=== PATIENT | female | born 1930 | race Caucasian/White ===

== ENCOUNTER 2018-02-01 15:41 | Observation (INO) | payer OTHER ==
[2018-02-01] MEDS ORDERED: methylPREDNISolone NA SUCC 125 MG/2 ML VIAL IVPB ONE (15:43)
[2018-02-01] MEDS: ALBUTEROL SO4 2.5/IPRATROPIUM 0.5 INH SOL 3 ML VIAL.NEB. NEB SCH ×4 (15:51→17:14)
--- NOTE | 2018-02-01 15:55 | PDOC ---
History of Present Illness - General Chief Complaint: Respiratory Distress Stated Complaint: DIFFICULTY BREATHING Time Seen by Provider: 02/01/18 15:47 - History of Present Illness Initial Comments: 02/01/18 15:49 88 F with h/o HTN, COPD, ?HOCM presents to ED with SOB x 5 days. Pt states that she has very advanced COPD and feels like she is having a COPD flare. Pt endorses wheezing and chest pressure. Denies F/C. Denies leg swelling. She states that she has not been using her albuterol at home because she believes she was given the wrong dosage by her doctors at [facility]. Pt has been admitted to [facility] twice this year and had extensive work up. However, pt is dissatisfied with the care she was receiving there and comes here today. Pt uses 2L home O2. Has not been on steroids recently. No h/o intubations. Past History - Past Medical History Allergies/Adverse Reactions: Allergies Allergy/AdvReac Type Severity Reaction Status Date / Time Iodine and Iodide Containing AdvReac Intermediate Verified 02/01/18 15:42 Produc Home Medications: Ambulatory Orders Albuterol 0.083% Nebulizer Susan [Ventolin 0.083% Nebulizer Soln -] 1 inh IN PRN 02/01/18 Albuterol Sulfate [Proventil HFA Inhaler -] 1 puff IN PRN 02/01/18 Review of Systems - Review of Systems Comments:: 02/01/18 15:51 "GENERAL/CONSTITUTIONAL: No fever or chills. No weakness. HEAD, EYES, EARS, NOSE AND THROAT: No change in vision. No ear pain or discharge. No sore throat. CARDIOVASCULAR: No chest pain . RESPIRATORY: + cough and SOB GASTROINTESTINAL: No nausea, vomiting, diarrhea or constipation. GENITOURINARY: No dysuria, frequency, or change in urination. MUSCULOSKELETAL: No joint or muscle swelling or pain. No neck or back pain. SKIN: No rash NEUROLOGIC: No headache, vertigo, loss of consciousness, or change in strength/ sensation. ENDOCRINE: No increased thirst. No abnormal weight change. HEMATOLOGIC/LYMPHATIC: No anemia, easy bleeding, or history of blood clots. ALLERGIC/IMMUNOLOGIC: No hives or skin allergy. " *Physical Exam - Physical Exam Comments: 02/01/18 15:53 "GENERAL: Awake, alert, and fully oriented, in no acute distress. HEAD: No signs of trauma EYES: PERRLA, EOMI, sclera anicteric, conjunctiva clear ENT: Auricles normal inspection, hearing grossly normal, nares patent, oropharynx clear without exudates. Moist mucosa NECK: Nontender, no stepoffs, Normal ROM, supple, no lymphadenopathy, JVD, or masses LUNGS: + diffuse rhonchi and expiratory wheezes HEART: Regular rate and rhythm, normal S1 and S2, no murmurs, rubs or gallops ABDOMEN: Soft, nontender, normoactive bowel sounds. No guarding, no rebound. No masses EXTREMITIES: Normal range of motion, no edema. No clubbing or cyanosis. No cords, erythema, or tenderness NEUROLOGICAL: Cranial nerves II through XII intact. 5/5 strength and sensation in all extremities, Normal speech, normal gait, normal cerebellar function SKIN: Warm, Dry, normal turgor, no rashes or lesions noted. " ED Treatment Course - LABORATORY CBC & Chemistry Diagram: 02/01/18 16:05 02/01/18 16:05 - RADIOLOGY Radiology Studies Ordered: Category Date Time Status CHEST X-RAY PORTABLE* [RAD] Stat Radiology 02/01/18 15:43 Ordered Medical Decision Making - Medical Decision Making 02/01/18 15:55 88 F with likely COPD flare. Severe wheezing on exam. No lower extremity swelling or rales to suggest CHF. No evidence of DVT/PE on exam. WIll r/o PNA with CXR. Pt without chest pain to suggest ACS. - Labs - CXR - Nebs, steroids - Reassess 02/01/18 17:51 Labs wnl CXR clear Pt reassessed s/p nebs and steroids. Significantly improved lung exam, but pt still with moderate expiratory wheezes. Will continue albuterol nebs and admit. 02/01/18 18:33 Pt reassessed at 6pm - HR now 160s, EKG obtained, shows SVT Pt instructed to perform vagal maneuvers, with successful conversion to sinus rhythm, HR 90. Pt denies ever having chest pain. Pt with 2 more episodes of SVT, all of which break with vagal maneuvers. dilt 30mg PO administered. Pt now sustained in NSR. Pt admitted to hospitalist, inpt tele *DC/Admit/Observation/Transfer Diagnosis at time of Disposition: COPD (chronic obstructive pulmonary disease), SVT (supraventricular tachycardia ) - Discharge Dispostion Condition at time of disposition: Fair Decision to Admit order: Yes - Referrals - Patient Instructions - Post Discharge Activity - Attestations Physician Attestion: 02/01/18 18:36 I, Dr. Kamar Miller MD, attest that this document has been prepared under my direction and personally reviewed by me in its entirety. I further attest, that it accurately reflects all work, treatment, procedures and medical decision -making performed by me.
[2018-02-01 16:25] LABS: BASO % 1.4 % (0-2.0); EOS % 13.9 % (0-4.5); HEMATOCRIT 43.3 % (32.4-45.2); HEMOGLOBIN 14.7 GM/dl (10.7-15.3); LYMPH % 15.1 % (8-40); MCH 31.1 pg (25.7-33.7); MCHC 33.9 g/dl (32.0-36.0); MEAN CELL VOLUME 91.9 fl (80-96); MEAN PLT VOLUME 7.6 fl (7.5-11.1); MONO % 10.6 % (3.8-10.2); PLATELET COUNT 284 K/MM3 (134-434); RBC 4.71 M/mm3 (3.60-5.2); RDW 12.6 % (11.6-15.6); WHITE BLOOD COUNT 6.8 K/mm3 (4.0-10.8)
[2018-02-01 16:38] LABS: ALK PHOS 58 U/L (32-92); ANION GAP 6 (8-16); BILIRUBIN,TOTAL 0.6 mg/dl (0.2-1.0); BLOOD UREA NITROGEN 13 mg/dl (7-18); CALCIUM 9.4 mg/dl (8.4-10.2); CHLORIDE 103 mmol/L (98-107); CO2 26 mmol/L (22-28); GLUCOSE,RANDOM 124 mg/dl (74-106); POTASSIUM 4.4 mmol/L (3.5-5.1); SGOT/AST 27 U/L (10-42); SGPT/ALT 23 U/L (10-40); SODIUM 135 mmol/L (136-145); TOT PROT 6.4 g/dl (6.4-8.3)
[2018-02-01 16:45] LABS: CREATININE < 0.8 mg/dl (0.6-1.3)
[2018-02-01 17:25] LABS: VENOUS PC02 43.9 mmHg (38-52); VENOUS PH 7.38 (7.32-7.42); VENOUS PO2 40.9 mmHg (28-48)
[2018-02-01] MEDS ORDERED: ALBUTEROL SO4 0.083% IH SOL 2.5 MG/3 ML VIAL.NEB. NEB ONE (17:50)
[2018-02-01] MEDS ORDERED: AZITHROMYCIN IVPB 500 MG in DEXTROSE 5%-WATER - 250 ML IVPB ONE (17:52)
[2018-02-01] MEDS ORDERED: dilTIAZem HCL 50 MG/10 ML - 10 ML VIAL IVPUSH ONE (18:24)
[2018-02-01] MEDS ORDERED: AZITHROMYCIN 500 MG VIAL IVPB ONE ×2 (18:24→18:26)
[2018-02-01] MEDS ORDERED: dilTIAZem HCL 30 MG TABLET (FP) PO ONE (18:35)
[2018-02-01] MEDS ORDERED: dilTIAZem HCL 30 MG TABLET (FP) ONE (18:41)
[2018-02-01 20:29] VITALS: BMI 19.0
--- NOTE | 2018-02-01 22:56 | HP ---
CHIEF COMPLAINT: SOB, wheezing PCP: [facility] HISTORY OF PRESENT ILLNESS: This is a 88 year old female with a significant past medical history of COPD who presented to the ED with SOB, chest pressure, cough and wheezing. She was recently admitted at [facility] for her COPD but felt the medication they gave her ( albuterol) was too strong so she has not been taking it. She came here as she has not been happy with the care she has been receiving at [facility]. Pt received 4 duonebs in the ED and later was noted to be in SVT, it broke with vagal maneuvers but recurred a total of 3 times. She has been in sinus rhythm since receiving diltiazem 30mg po. ER course was notable for: (1) WBC 6.8 (2) SVT after duonebs (3) BNP 1470 Recent Travel: pt denies PAST MEDICAL HISTORY: COPD, concussion 2016 PAST SURGICAL HISTORY: , appendectomy, L trimal ORIF, R patellar fracture Social History: Smoking: pt denies, + second hand exposure () Alcohol: seldom Drugs: pt denies Family History: father emphysema Allergies Iodine and Iodide Containing Produc Adverse Reaction (Intermediate, Verified 15:42) HOME MEDICATIONS: 3 Medication Instructions Recorded Albuterol 0.083% Nebulizer Susan 1 inh IN PRN 02/01/18 [Ventolin 0.083% Nebulizer Soln -] Albuterol Sulfate [Proventil HFA 1 puff IN PRN 02/01/18 Inhaler -] REVIEW OF SYSTEMS CONSTITUTIONAL: Absent: fever, chills, diaphoresis, generalized weakness, malaise, loss of appetite, weight change HEENT: Absent: rhinorrhea, nasal congestion, throat pain, throat swelling, difficulty swallowing, mouth swelling, ear pain, eye pain, visual changes CARDIOVASCULAR: Absent: chest pain, syncope, palpitations, irregular heart rate, lightheadedness , peripheral edema RESPIRATORY: present: cough, shortness of breath, wheezing Absent: dyspnea with exertion, orthopnea, stridor, hemoptysis GASTROINTESTINAL: Absent: abdominal pain, abdominal distension, nausea, vomiting, diarrhea, constipation, melena, hematochezia GENITOURINARY: Absent: dysuria, frequency, urgency, hesitancy, hematuria, flank pain, genital pain MUSCULOSKELETAL: Absent: myalgia, arthralgia, joint swelling, back pain, neck pain SKIN: Absent: rash, itching, pallor HEMATOLOGIC/IMMUNOLOGIC: Absent: easy bleeding, easy bruising, lymphadenopathy, frequent infections ENDOCRINE: Absent: unexplained weight gain, unexplained weight loss, heat intolerance, cold intolerance NEUROLOGIC: Absent: headache, focal weakness or paresthesias, dizziness, unsteady gait, seizure, mental status changes, bladder or bowel incontinence PSYCHIATRIC: Absent: anxiety, depression, suicidal or homicidal ideation, hallucinations. PHYSICAL EXAMINATION Vital Signs - 24 hr 3 02/01/18 02/01/18 02/01/18 15:42 18:00 18:50 Temperature 98.5 F Pulse Rate 103 H Pulse Rate [ 160 H 107 H Right] Respiratory 24 28 H 28 H Rate Blood Pressure 163/119 Blood Pressure 130/90 112/92 [Right Arm] O2 Sat by Pulse 95 99 98 Oximetry (%) 3 02/01/18 02/01/18 02/01/18 19:49 22:10 22:35 Temperature Pulse Rate 100 H Pulse Rate [ 93 H 93 H Right] Respiratory 24 16 Rate Blood Pressure Blood Pressure 110/76 114/62 [Right Arm] O2 Sat by Pulse 99 100 98 Oximetry (%) GENERAL: Awake, alert, and fully oriented, in no acute distress. HEAD: Normal with no signs of trauma. EYES: Pupils equal, round and reactive to light, extraocular movements intact, sclera anicteric, conjunctiva clear. No lid lag. EARS, NOSE, THROAT: Ears normal, nares patent, oropharynx clear without exudates. Moist mucous membranes. NECK: Normal range of motion, supple without lymphadenopathy, JVD, or masses. LUNGS: Breath sounds equal, clear to auscultation bilaterally. No wheezes, and no crackles. No accessory muscle use. HEART: Regular rate and rhythm, normal S1 and S2 without rub or gallop. + murmur ABDOMEN: Soft, nontender, not distended, normoactive bowel sounds, no guarding, no rebound, no masses. No hepatomegaly or splenomegaly. MUSCULOSKELETAL: Normal range of motion at all joints. No bony deformities or tenderness. No CVA tenderness. UPPER EXTREMITIES: 2+ pulses, warm, well-perfused. No cyanosis. No clubbing. No peripheral edema. LOWER EXTREMITIES: 2+ pulses, warm, well-perfused. No calf tenderness. No peripheral edema. NEUROLOGICAL: Cranial nerves II-XII intact. Normal speech. Normal gait. PSYCHIATRIC: Cooperative. Good eye contact. Appropriate mood and affect. SKIN: Warm, dry, normal turgor, no rashes or lesions noted, normal capillary refill. Laboratory Results - last 24 hr 3 02/01/18 02/01/18 02/01/18 16:05 16:05 16:05 WBC 6.8 RBC 4.71 Hgb 14.7 Hct 43.3 MCV 91.9 MCH 31.1 MCHC 33.9 RDW 12.6 Plt Count 284 MPV 7.6 Neutrophils % 59.0 Lymphocytes % 15.1 Monocytes % 10.6 H Eosinophils % 13.9 H Basophils % 1.4 VBG pH POC VBG pCO2 POC VBG pO2 Mixed VBG HCO3 Sodium 135 L Potassium 4.4 Chloride 103 Carbon Dioxide 26 Anion Gap 6 L BUN 13 Creatinine < 0.8 Creat Clearance w eGFR > 60 Random Glucose 124 H Calcium 9.4 Total Bilirubin 0.6 AST 27 ALT 23 Alkaline Phosphatase 58 Creatine Kinase Cancelled Creatine Kinase Index CK-MB (CK-2) Troponin I Cancelled B-Natriuretic Peptide 1470.94 H Total Protein 6.4 Albumin 4.0 3 02/01/18 02/01/18 02/01/18 16:05 16:05 16:05 WBC RBC Hgb Hct MCV MCH MCHC RDW Plt Count MPV Neutrophils % Lymphocytes % Monocytes % Eosinophils % Basophils % VBG pH 7.38 POC VBG pCO2 43.9 POC VBG pO2 40.9 Mixed VBG HCO3 25.5 H Sodium Potassium Chloride Carbon Dioxide Anion Gap BUN Creatinine Creat Clearance w eGFR Random Glucose Calcium Total Bilirubin AST ALT Alkaline Phosphatase Creatine Kinase 344 H Creatine Kinase Index 3.7 CK-MB (CK-2) 12.9 H Troponin I 0.04 B-Natriuretic Peptide Total Protein Albumin ECG 02/01/18 18:01 SVT vent rate 159, QTC [address] abnormality, ST depression V3-V6 02/01/18 Sinus tachycardia vent rate 118, QTC 448 ST depression has resolved Radiology Reports CXR portable IMPRESSION: Borderline cardiomegaly without evidence of acute lung disease Reported By: Cr Hutchins MD 02/01/18 [id number] ASSESSMENT/PLAN: 88yF with PMH COPD presented to the ED with SOB, chest pressure and cough. COPD exac - SVT after duonebs, will give levalbuterol PRN and atrovent standing QID - prednisone 60mg po daily, taper as tolerated - given azithromycin 500mg IVPB, cont 250 po daily - f/u with private [facility] admin as an outpatient - of note pt reports adverse reaction to symbicort-"felt like my head was going to blow off and then passed out"; advair-"made my voice hoarse and my singing voice go away"; spiriva-unable to manage delivery device due to arthritis in hands chest pain - likely non cardiac, due to copd - given SVT episode will trend troponins and monitor on tele. DVT PPX - heparin deferred as anticipated LOS <48h, reassess if stay exceeds FEN - tolerating po - BMP in am - regular diet as tolerated Dispo: pt currently requires further observation for management of emergent condition. Visit type - Emergency Visit Emergency Visit: Yes ED Registration Date: 02/01/18 Care time: The patient presented to the Emergency Department on the above date and was hospitalized for further evaluation of their emergent condition. - New Patient This patient is new to me today: Yes Date on this admission: 02/01/18 - Critical Care Critical Care patient: No Hospitalist Screening - Colonoscopy Questionnaire Colonoscopy Questionnaire: Colonoscopy Questionnaire - Patient: 50 - 75 years old and never had a screening colonoscopy: No History of colon or rectal polyps, or CA: No History of IBD, Crohn's disease or UC: No History of abdominal radiation therapy as a child: No - Relative: 1 with colon or rectal CA, or polyps at age 60 or younger: Unknown Colon or rectal CA diagnosed at age 45 or younger: Unknown Multiple relatives with colon or rectal CA: Unknown - Outcome: Screening Result: Negative Screen
[2018-02-02] MEDS: LEVALBUTEROL HCL 0.63 MG/3 ML VIAL.NEB. IH PRN ×3 (01:18→12:30)
[2018-02-02] MEDS ORDERED: methylPREDNISolone NA SUCC 125 MG/2 ML VIAL IVPB ONE (06:45)
[2018-02-02 08:35] LABS: BASO % 0.4 % (0-2.0); HEMATOCRIT 40.4 % (32.4-45.2); HEMOGLOBIN 13.8 GM/dl (10.7-15.3); LYMPH % 12.8 % (8-40); MCH 31.6 pg (25.7-33.7); MCHC 34.2 g/dl (32.0-36.0); MEAN CELL VOLUME 92.3 fl (80-96); MEAN PLT VOLUME 8.1 fl (7.5-11.1); MONO % 4.8 % (3.8-10.2); PLATELET COUNT 235 K/MM3 (134-434); RBC 4.37 M/mm3 (3.60-5.2); RDW 12.5 % (11.6-15.6); WHITE BLOOD COUNT 6.4 K/mm3 (4.0-10.8)
[2018-02-02] MEDS: IPRATROPIUM BR 0.02% 0.5 MG/2.5 ML VIAL.NEB. NEB SCH ×2 (08:50→12:04)
[2018-02-02 09:20] LABS: ANION GAP 9 (8-16); BLOOD UREA NITROGEN 12 mg/dl (7-18); CALCIUM 9.2 mg/dl (8.4-10.2); CHLORIDE 100 mmol/L (98-107); CO2 25 mmol/L (22-28); GLUCOSE,RANDOM 129 mg/dl (74-106); MAGNESIUM 1.8 mg/dL (1.8-2.4); PHOSPHOROUS 3.4 mg/dl (2.5-4.6); POTASSIUM 4.6 mmol/L (3.5-5.1); SODIUM 134 mmol/L (136-145)
[2018-02-02 10:00] LABS: CREATININE < 0.8 mg/dl (0.6-1.3)
[2018-02-02] MEDS ORDERED: AZITHROMYCIN 250 MG TABLET PO SCH (10:00)
[2018-02-02] MEDS ORDERED: predniSONE 20 MG TABLET (UD) PO SCH (10:00)
[2018-02-02] MEDS ORDERED: MAGNESIUM SULFATE IN WATER 2 GM/50 ML IVPB IVPB ONE (11:30)
[2018-02-02] MEDS ORDERED: PT OWN MED DRAWER 7, Y5N ONE ×2 (11:33→12:31)
--- NOTE | 2018-02-02 12:00 | DS ---
Physical Exam: SUBJECTIVE: Patient seen and examined OBJECTIVE: Vital Signs Period Temp Pulse Resp BP Sys/Waller Pulse Ox Last 24 Hr 97.5 F-98.5 F 82-160 14-28 110-163/56-119 95-100 PHYSICAL EXAM GENERAL: The patient is awake, alert, and fully oriented, in no acute distress. HEAD: Normal with no signs of trauma. EYES: PERRL, extraocular movements intact, sclera anicteric, conjunctiva clear. ENT: Ears normal, nares patent, oropharynx clear without exudates, moist mucous membranes. NECK: Trachea midline, full range of motion, supple. LUNGS: Breath sounds equal, clear to auscultation bilaterally, no wheezes, no crackles, no accessory muscle use. HEART: Regular rate and rhythm, S1, S2 without murmur, rub or gallop. ABDOMEN: Soft, nontender, nondistended, normoactive bowel sounds, no guarding, no rebound, no hepatosplenomegaly, no masses. EXTREMITIES: 2+ pulses, warm, well-perfused, no edema. NEUROLOGICAL: Cranial nerves II through XII grossly intact. Normal speech, gait not observed. PSYCH: Normal mood, normal affect. SKIN: Warm, dry, normal turgor, no rashes or lesions noted. LABS Laboratory Results - last 24 hr 02/01/18 02/01/18 02/01/18 16:05 16:05 16:05 WBC 6.8 RBC 4.71 Hgb 14.7 Hct 43.3 MCV 91.9 MCH 31.1 MCHC 33.9 RDW 12.6 Plt Count 284 MPV 7.6 Neutrophils % 59.0 Lymphocytes % 15.1 Monocytes % 10.6 H Eosinophils % 13.9 H Basophils % 1.4 VBG pH POC VBG pCO2 POC VBG pO2 Mixed VBG HCO3 Sodium 135 L Potassium 4.4 Chloride 103 Carbon Dioxide 26 Anion Gap 6 L BUN 13 Creatinine < 0.8 Creat Clearance w eGFR > 60 Random Glucose 124 H Calcium 9.4 Phosphorus Magnesium Total Bilirubin 0.6 AST 27 ALT 23 Alkaline Phosphatase 58 Creatine Kinase Cancelled Creatine Kinase Index CK-MB (CK-2) Troponin I Cancelled B-Natriuretic Peptide 1470.94 H Total Protein 6.4 Albumin 4.0 02/01/18 02/01/18 02/01/18 16:05 16:05 16:05 WBC RBC Hgb Hct MCV MCH MCHC RDW Plt Count MPV Neutrophils % Lymphocytes % Monocytes % Eosinophils % Basophils % VBG pH 7.38 POC VBG pCO2 43.9 POC VBG pO2 40.9 Mixed VBG HCO3 25.5 H Sodium Potassium Chloride Carbon Dioxide Anion Gap BUN Creatinine Creat Clearance w eGFR Random Glucose Calcium Phosphorus Magnesium Total Bilirubin AST ALT Alkaline Phosphatase Creatine Kinase 344 H Creatine Kinase Index 3.7 CK-MB (CK-2) 12.9 H Troponin I 0.04 B-Natriuretic Peptide Total Protein Albumin 02/01/18 02/01/18 02/02/18 23:01 23:02 08:24 WBC 6.4 RBC 4.37 Hgb 13.8 Hct 40.4 MCV 92.3 MCH 31.6 MCHC 34.2 RDW 12.5 Plt Count 235 MPV 8.1 Neutrophils % 82.0 Lymphocytes % 12.8 Monocytes % 4.8 Eosinophils % 0.0 Basophils % 0.4 VBG pH POC VBG pCO2 POC VBG pO2 Mixed VBG HCO3 Sodium Potassium Chloride Carbon Dioxide Anion Gap BUN Creatinine Creat Clearance w eGFR Random Glucose Calcium Phosphorus Magnesium Total Bilirubin AST ALT Alkaline Phosphatase Creatine Kinase 263 H Creatine Kinase Index 3.4 CK-MB (CK-2) 9.2 H Troponin I 0.04 B-Natriuretic Peptide Total Protein Albumin 02/02/18 02/02/18 02/02/18 08:27 08:27 08:27 WBC RBC Hgb Hct MCV MCH MCHC RDW Plt Count MPV Neutrophils % Lymphocytes % Monocytes % Eosinophils % Basophils % VBG pH POC VBG pCO2 POC VBG pO2 Mixed VBG HCO3 Sodium 134 L Potassium 4.6 Chloride 100 Carbon Dioxide 25 Anion Gap 9 BUN 12 Creatinine < 0.8 Creat Clearance w eGFR Random Glucose 129 H Calcium 9.2 Phosphorus 3.4 Magnesium 1.8 Total Bilirubin AST ALT Alkaline Phosphatase Creatine Kinase 278 H Creatine Kinase Index 3.6 CK-MB (CK-2) 10.2 H Troponin I 0.03 B-Natriuretic Peptide Total Protein Albumin HOSPITAL COURSE: Date of Admission:02/01/18 Date of Discharge: 02/02/18 Discharge Summary Reason For Visit: COPD/TACHYCARDIA Current Active Problems COPD (chronic obstructive pulmonary disease) (Acute) SVT (supraventricular tachycardia) (Acute) Condition: Fair - Instructions - Home Medications Comprehensive Discharge Medication List: Ambulatory Orders Albuterol 0.083% Nebulizer Susan [Ventolin 0.083% Nebulizer Soln -] 1 inh IN PRN 02/01/18 Albuterol Sulfate [Proventil HFA Inhaler -] 1 puff IN PRN 02/01/18
[2018-02-02 14:23] VITALS: BP 126/66; PULSE 88; TEMP 97.5
--- NOTE | 2018-02-04 08:46 | EKG ---
Test Reason : Blood Pressure : / mmHG Vent. Rate : 159 BPM Atrial Rate : 017 BPM P-R Int : 000 ms QRS Dur : 088 ms QT Int : 304 ms P-R-T Axes : 000 -49 067 degrees QTc Int : 494 ms SINUS TACHYCARDIA LEFT AXIS DEVIATION MARKED ST ABNORMALITY, POSSIBLE INFERIOR SUBENDOCARDIAL INJURY MARKED ST ABNORMALITY, POSSIBLE ANTEROLATERAL SUBENDOCARDIAL INJURY ABNORMAL ECG NO PREVIOUS ECGS AVAILABLE Confirmed by ERWIN TOMPKINS, YIN ([id number]) on 02/04/2018 8:46:14 AM Referred By: DR MCCARTNEY Confirmed By:YIN HOOD MD
--- NOTE | 2018-02-04 08:47 | EKG ---
Test Reason : Blood Pressure : / mmHG Vent. Rate : 118 BPM Atrial Rate : 118 BPM P-R Int : 180 ms QRS Dur : 090 ms QT Int : 320 ms P-R-T Axes : 077 -15 064 degrees QTc Int : 448 ms SINUS TACHYCARDIA POSSIBLE LEFT ATRIAL ENLARGEMENT POSSIBLE INFERIOR INFARCT , AGE UNDETERMINED ABNORMAL ECG WHEN COMPARED WITH ECG OF 01-FEB-2018 18:01, QRS AXIS SHIFTED RIGHT BORDERLINE CRITERIA FOR INFERIOR INFARCT ARE NOW PRESENT ST NO LONGER DEPRESSED IN INFERIOR LEADS ST NO LONGER DEPRESSED IN ANTEROLATERAL LEADS NONSPECIFIC T WAVE ABNORMALITY NO LONGER EVIDENT IN INFERIOR LEADS Confirmed by ERWIN TOMPKINS, YIN ([id number]) on 02/04/2018 8:46:32 AM Referred By: MD MCCARTNEY Confirmed By:YIN HOOD MD
--- NOTE | 2018-02-07 07:55 | DS ---
Physical Exam: SUBJECTIVE: Patient seen and examined OBJECTIVE:This is a 88 year old female with a significant past medical history of COPD who presented to the ED with SOB, chest pressure, cough and wheezing. She was recently admitted at [facility] for her COPD but felt the medication they gave her (albuterol) was too strong so she has not been taking it. She came here as she has not been happy with the care she has been receiving at [facility]. Pt received 4 duonebs in the ED and later was noted to be in SVT, it broke with vagal maneuvers but recurred a total of 3 times. She has been in sinus rhythm since receiving diltiazem 30mg po. ER course was notable for: (1) WBC 6.8 (2) SVT after duonebs (3) BNP 1470 PHYSICAL EXAM GENERAL: The patient is awake, alert, and fully oriented, in no acute distress. HEAD: Normal with no signs of trauma. EYES: PERRL, extraocular movements intact, sclera anicteric, conjunctiva clear. ENT: Ears normal, nares patent, oropharynx clear without exudates, moist mucous membranes. NECK: Trachea midline, full range of motion, supple. LUNGS: Breath sounds equal, clear to auscultation bilaterally, no wheezes, no crackles, no accessory muscle use. HEART: Regular rate and rhythm, S1, S2 without murmur, rub or gallop. ABDOMEN: Soft, nontender, nondistended, normoactive bowel sounds, no guarding, no rebound, no hepatosplenomegaly, no masses. EXTREMITIES: 2+ pulses, warm, well-perfused, no edema. NEUROLOGICAL: Cranial nerves II through XII grossly intact. Normal speech, gait not observed. PSYCH: Normal mood, normal affect. SKIN: Warm, dry, normal turgor, no rashes or lesions noted. 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 02/02/18 predniSONE [Deltasone -] 5 mg PO ASDIR #32 tab 02/02/18
== END 2018-02-02 14:35 | disposition home or self-care (01) ==
LOC: FER 15:41 → FM/S 20:20 → UNDOADMOB 02-02 00:20
PROVIDERS: ADMIT Internal Medicine; ATTEND Nurse Practitioner Family
PROC: 3E03329 Introduction of Other Anti-infective into Peripheral Vein, Percutaneous Approach (ICD-10-PCS; principal; 2018-02-01)
PROC: 3E033GC Introduction of Other Therapeutic Substance into Peripheral Vein, Percutaneous Approach (ICD-10-PCS; 2018-02-01)
PROC: 3E033NZ Introduction of Analgesics, Hypnotics, Sedatives into Peripheral Vein, Percutaneous Approach (ICD-10-PCS; 2018-02-01)
PROC: 3E0F7GC Introduction of Other Therapeutic Substance into Respiratory Tract, Via Natural or Artificial Opening (ICD-10-PCS; 2018-02-01)
DX: J44.1 Chronic obstructive pulmonary disease with (acute) exacerbation (principal); I47.1 Supraventricular tachycardia; I10 Essential (primary) hypertension; Z99.81 Dependence on supplemental oxygen; Z91.048 Other nonmedicinal substance allergy status
CPT/HCPCS: 36415; 71045-TC-FY; 80048; 80053; 82550; 82553; 82803; 83735; 83880; 84100; 84484; 85025; 93005; 94640; 96365; 96367; 96375; 96376; 99285-25; G0378; J7620